=== PATIENT | female | born 1985 | race Two or more races ===

== ENCOUNTER 2021-08-02 08:58 | Outpatient (CLI) | payer OTHER | END 2021-08-02 09:06 | disposition home or self-care (01) | LOC: NUCLEAR 08:58 | PROVIDERS: ATTEND General Practice | DX: I73.9 Peripheral vascular disease, unspecified (principal) ==

== ENCOUNTER → 2021-09-28 | Outpatient (CLI) | payer OTHER | END | disposition home or self-care (01) | LOC: NUCLEAR 07:00 | PROVIDERS: ATTEND General Practice | DX: I70.213 Atherosclerosis of native arteries of extremities with intermittent claudication, bilateral legs (principal); C95.90 Leukemia, unspecified not having achieved remission ==

== ENCOUNTER 2021-09-29 09:14 | Outpatient (CLI) | payer OTHER | END 2021-09-29 09:16 | disposition home or self-care (01) | LOC: NUCLEAR 09:14 | PROVIDERS: ATTEND General Practice | DX: I70.213 Atherosclerosis of native arteries of extremities with intermittent claudication, bilateral legs (principal); C95.90 Leukemia, unspecified not having achieved remission; I82.453 Acute embolism and thrombosis of peroneal vein, bilateral ==